=== PATIENT | female | born 1930 | race Caucasian/White ===

== ENCOUNTER 2017-11-15 00:42 | Inpatient (IN) | payer MEDICARE, OTHER ==
[~2017-11-15] VITALS: Ht 160 cm; Wt 122.9 kg
[2017-11-15] MEDS ORDERED: LOPERAMIDE HCL (2 MG CAP) 2 MG CAPSULE PO ONE ×2 (02:30→02:31)
[2017-11-15 03:11] LABS: BASOPHILS # (AUTO) 0.6 /CMM (0.0-0.2); BASOPHILS % (AUTO) 1.5 % (0.0-2.0); EOSINOPHILS % (AUTO) 0.1 % (0.0-6.0); HEMATOCRIT 44 % (33-45); HEMOGLOBIN 15.2 g/dL (11.5-14.8); LYMPHOCYTES # (AUTO) 1.3 /CMM (0.8-4.8); LYMPHOCYTES % (AUTO) 3.5 % (20.0-44.0); MEAN CORPUSCULAR HEMOGLOBIN 30 PG (26.0-33.0); MEAN CORPUSCULAR HGB CONC 35 g/dl (31.0-36.0); MEAN CORPUSCULAR VOLUME 86 fL (82-100); MONOCYTES # (AUTO) 1.2 /CMM (0.1-1.30); MONOCYTES % (AUTO) 3.2 % (2.0-12.0); NEUTROPHILS # (AUTO) 35.3 /CMM (1.8-8.9); NEUTROPHILS % (AUTO) 91.7 % (43.0-81.0); PLATELET COUNT (AUTO) 314 /CMM (150-450); RDW COEFFICIENT OF VARIATION 13.2 (11.5-15.0); RED BLOOD CELL COUNT(AUTO) 5.05 MIL/uL (4.0-5.2)
[2017-11-15 03:18] LABS: WHITE BLOOD COUNT (AUTO) 38.4 K/uL (4.3-11.0)
[2017-11-15 03:21] LABS: CALCIUM, SERUM 7.6 mg/dL (8.5-10.1); CARBON DIOXIDE 18 mmol/L (21-32); CHLORIDE 91 mmol/L (98-107); CREATININE 1.9 mg/dL (0.6-1.3); GLUCOSE 126 mg/dL (74-106); SODIUM SERUM 125 mmol/L (136-145); UREA NITROGEN, BLOOD 58 mg/dL (7-18)
[2017-11-15 03:27] LABS: ALANINE AMINOTRANSFERASE 19 U/L (12-78); ALKALINE PHOSPHATASE 92 U/L (46-116); ASPARTATE AMINOTRANSFERASE 27 U/L (15-37); BILIRUBIN,DIRECT 0.4 mg/dL (0.0-0.2); BILIRUBIN,TOTAL 1.5 mg/dL (0.2-1.0); TOTAL PROTEIN, SERUM 7.6 g/dL (6.4-8.2)
[2017-11-15] MEDS ORDERED: PIPERACILLIN /TAZOBACTAM 2.25 G in IV D5W 50 ML IV ONE (03:30)
[2017-11-15] MEDS ORDERED: VANCOMYCIN 1 GM in IV D5W 250 ML IV ONE (03:30)
[2017-11-15] MEDS ORDERED: PIPERACILLIN /TAZOBACTAM 2.25 G VIAL IV ONE (04:12)
[2017-11-15] MEDS ORDERED: VANCOMYCIN 1 GM VIAL ONE (04:25)
[2017-11-15 04:27] LABS: BASOPHILS # (AUTO) 1.3 /CMM (0.0-0.2); BASOPHILS % (AUTO) 3.2 % (0.0-2.0); CALCIUM, SERUM 7.5 mg/dL (8.5-10.1); CARBON DIOXIDE 21 mmol/L (21-32); CHLORIDE 92 mmol/L (98-107); GLUCOSE 119 mg/dL (74-106); HEMATOCRIT 43 % (33-45); HEMOGLOBIN 14.7 g/dL (11.5-14.8); LYMPHOCYTES # (AUTO) 1.4 /CMM (0.8-4.8); LYMPHOCYTES % (AUTO) 3.5 % (20.0-44.0); MEAN CORPUSCULAR HEMOGLOBIN 29 PG (26.0-33.0); MEAN CORPUSCULAR HGB CONC 34 g/dl (31.0-36.0); MEAN CORPUSCULAR VOLUME 86 fL (82-100); MONOCYTES # (AUTO) 1.3 /CMM (0.1-1.30); MONOCYTES % (AUTO) 3.4 % (2.0-12.0); NEUTROPHILS # (AUTO) 35.5 /CMM (1.8-8.9); NEUTROPHILS % (AUTO) 89.9 % (43.0-81.0); PLATELET COUNT (AUTO) 313 /CMM (150-450); POTASSIUM 4.3 mmol/L (3.5-5.1); RDW COEFFICIENT OF VARIATION 13.4 (11.5-15.0); SODIUM SERUM 130 mmol/L (136-145); UREA NITROGEN, BLOOD 58 mg/dL (7-18)
[2017-11-15 04:31] LABS: INR 1.1 (0.87-1.13)
[2017-11-15 04:32] LABS: WHITE BLOOD COUNT (AUTO) 39.5 K/uL (4.3-11.0)
[2017-11-15 04:36] LABS: BAND % (MANUAL) 5 % (0.0-5.0); LYMPHOCYTES % (MANUAL) 6 % (16-48); MONOCYTES % (MANUAL) 2 % (0-11.0); NEUTROPHILS % (MANUAL) 87 (42-76)
[2017-11-15 04:44] LABS: ALANINE AMINOTRANSFERASE 17 U/L (12-78); ALBUMIN 3.1 g/dL (3.4-5.0); ALKALINE PHOSPHATASE 84 U/L (46-116); ASPARTATE AMINOTRANSFERASE 18 U/L (15-37); BILIRUBIN,TOTAL 1.4 mg/dL (0.2-1.0); TOTAL PROTEIN, SERUM 7.3 g/dL (6.4-8.2)
[2017-11-15 04:48] LABS: TROPONIN I 0.063 ng/mL (0.00-0.056)
[2017-11-15 05:02] LABS: APPEARANCE,URINE SL CLOUDY (CLEAR); BILIRUBIN,URINE 2+ (NEGATIVE); BLOOD, URINE NEGATIVE Ery/uL (NEGATIVE); COLOR,URINE AMBER (YELLOW); KETONES,URINE TRACE (NEGATIVE); LEUKOCYTE ESTERASE ,URINE NEGATIVE (NEGATIVE); NITRITE, URINE POSITIVE (NEGATIVE); PROTEIN,URINE TRACE mg/dl (NEGATIVE); UGLUCOSE NEGATIVE (NEGATIVE)
[2017-11-15 05:10] LABS: BACTERIA,URINE Few /HPF (None Seen); RBC,URINE 0-2 /HPF (0-2); SQUAMOUS EPITHELIAL CELL,UR Few /HPF (None Seen)
[2017-11-15 05:11] LABS: HYALINE CASTS, URINE Few /LPF (None Seen)
[2017-11-15 05:44] LABS: OCCULT BLOOD STOOL NEGATIVE (NEGATIVE)
[2017-11-15 06:00] VITALS: BP 96/44
[2017-11-15] MEDS ORDERED: Z GUARD REMEDY 2 OZ OINT TP PRN (06:00)
[2017-11-15] MEDS ORDERED: IV NS 0.9% 500 ML BAG IV ONE (06:00)
[2017-11-15] MEDS ORDERED: ONDANSETRON HCL/PF 4 MG/2 ML VIAL IVP PRN (06:00)
[2017-11-15] MEDS ORDERED: ASPIRIN 81 MG TAB.CHEW PO SCH ×4 (06:00→09:00)
[2017-11-15] MEDS ORDERED: MAGNESIUM HYDROXIDE 30 ML UDC PO PRN (06:00)
[2017-11-15] MEDS ORDERED: HYDROCODONE/APAP 5/325MG 1 EACH TABLET PO PRN (06:00)
[2017-11-15] MEDS ORDERED: ZOLPIDEM TARTRATE 5 MG TABLET PO PRN (06:00)
[2017-11-15 06:10] VITALS: BP 96/44
[2017-11-15] MEDS: IV NS 0.9% 1,000 ML IV PRN (07:03)
[2017-11-15] MEDS ORDERED: FEE PK DOSING 1 MIN EA MC ONE (07:22)
[2017-11-15 08:00] VITALS: BP 122/59
[2017-11-15] MEDS: METRONIDAZOLE 500MG/ NS 100ML 500 MG in PREMIX 1 EA IV SCH ×2 (08:11→14:33)
[2017-11-15] MEDS ORDERED: CLON0.3P TD (10:43)
[2017-11-15] MEDS ORDERED: ZOLP5TAB8 PO (10:43)
[2017-11-15] MEDS ORDERED: CLON0.2T PO (10:43)
[2017-11-15] MEDS ORDERED: MONT10TA22 PO (10:43)
[2017-11-15] MEDS ORDERED: CARV12.52 PO (10:43)
[2017-11-15] MEDS ORDERED: ERGO500014 PO (10:43)
[2017-11-15] MEDS ORDERED: VALS1TAB4 PO (10:43)
[2017-11-15] MEDS ORDERED: METF500T4 PO (10:43)
[2017-11-15] MEDS ORDERED: POTA10TA15 PO (10:43)
[2017-11-15] MEDS ORDERED: FURO40TA5 PO (10:43)
[2017-11-15] MEDS ORDERED: ESCI10TA PO (10:43)
[2017-11-15] MEDS ORDERED: ALPR0.5T8 PO (10:43)
[2017-11-15] MEDS ORDERED: BENZ0.5T3 PO (10:43)
[2017-11-15] MEDS ORDERED: ARIP2TAB11 PO (10:43)
[2017-11-15] MEDS ORDERED: NAPR-1009 PO (10:43)
[2017-11-15] MEDS ORDERED: LEVO112T2 PO (10:43)
[2017-11-15] MEDS ORDERED: ROSU10TA27 PO (10:43)
[2017-11-15] MEDS ORDERED: OMEP20CA10 PO (10:43)
[2017-11-15] MEDS ORDERED: ALLO100T PO (10:43)
[2017-11-15] MEDS ORDERED: ANAS1TAB8 PO (10:43)
[2017-11-15] MEDS ORDERED: AMLO5TAB2 PO (10:43)
[2017-11-15] MEDS ORDERED: INSU100V11 SQ (10:56)
[2017-11-15] MEDS ORDERED: BRIM5DRO2 EACHEYE (10:57)
[2017-11-15] MEDS: PIPERACILLIN /TAZOBACTAM 2.25 G in IV D5W 50 ML IV SCH ×3 (11:20→23:18)
[2017-11-15 12:00] VITALS: BP 115/63
[2017-11-15 16:00] VITALS: BP 103/46
[2017-11-15] MEDS: VANCOMYCIN 1 GM in IV D5W 250 ML IV SCH (16:02)
[2017-11-15] MEDS ORDERED: DEXTROSE 50%-WATER 50 ML DISP.SYRIN IV PRN (18:00)
[2017-11-15 20:00] VITALS: BP 103/46
[2017-11-15] MEDS: BLOOD SUGAR DIAGNOSTIC 1 EACH STRIP IN SCH (22:26)
[2017-11-15] MEDS: INSULIN REGULAR, HUMAN 100 UNIT/ML 3 ML VIAL SQ PRN (22:31)
[2017-11-16] VITALS: BP 138/67
[2017-11-16] MEDS: IV NS 0.9% 1,000 ML IV PRN ×2 (02:38→17:35)
[2017-11-16 04:00] VITALS: BP 145/74
[2017-11-16] MEDS: PIPERACILLIN /TAZOBACTAM 2.25 G in IV D5W 50 ML IV SCH ×3 (05:03→17:10)
[2017-11-16 08:00] VITALS: BP 145/74
[2017-11-16] MEDS: BLOOD SUGAR DIAGNOSTIC 1 EACH STRIP IN SCH ×4 (08:06→21:45)
[2017-11-16 08:08] LABS: BASOPHILS % (AUTO) 0.2 % (0.0-2.0); HEMATOCRIT 38 % (33-45); HEMOGLOBIN 12.7 g/dL (11.5-14.8); LYMPHOCYTES # (AUTO) 0.6 /CMM (0.8-4.8); LYMPHOCYTES % (AUTO) 3.1 % (20.0-44.0); MEAN CORPUSCULAR HEMOGLOBIN 29 PG (26.0-33.0); MEAN CORPUSCULAR HGB CONC 34 g/dl (31.0-36.0); MEAN CORPUSCULAR VOLUME 87 fL (82-100); MONOCYTES # (AUTO) 0.7 /CMM (0.1-1.30); MONOCYTES % (AUTO) 3.6 % (2.0-12.0); NEUTROPHILS # (AUTO) 18.3 /CMM (1.8-8.9); NEUTROPHILS % (AUTO) 93.1 % (43.0-81.0); PLATELET COUNT (AUTO) 243 /CMM (150-450); RDW COEFFICIENT OF VARIATION 14.2 (11.5-15.0); RED BLOOD CELL COUNT(AUTO) 4.36 MIL/uL (4.0-5.2); WHITE BLOOD COUNT (AUTO) 19.6 K/uL (4.3-11.0)
[2017-11-16 08:25] LABS: CALCIUM, SERUM 6.7 mg/dL (8.5-10.1); CARBON DIOXIDE 19 mmol/L (21-32); CHLORIDE 97 mmol/L (98-107); CREATININE 1.8 mg/dL (0.6-1.3); GLUCOSE 120 mg/dL (74-106); MAGNESIUM 2.6 mg/dL (1.8-2.4); PHOSPHORUS 4.5 mg/dL (2.5-4.9); POTASSIUM 3.4 mmol/L (3.5-5.1); SODIUM SERUM 131 mmol/L (136-145); UREA NITROGEN, BLOOD 61 mg/dL (7-18)
[2017-11-16 09:21] LABS: CHOLESTEROL 97 mg/dL (<200); HDL CHOLESTEROL 20 mg/dL (40-60); LDL 61 mg/dL (0-99); TRIGLYCERIDES 116 mg/dL (30-150)
[2017-11-16 09:23] LABS: BAND % (MANUAL) 3 % (0.0-5.0); LYMPHOCYTES % (MANUAL) 4 % (16-48); MONOCYTES % (MANUAL) 3 % (0-11.0); NEUTROPHILS % (MANUAL) 90 (42-76)
[2017-11-16] MEDS ORDERED: POTASSIUM CHLORIDE 20 MEQ TAB.PRT.SR PO ONE (10:00)
[2017-11-16] MEDS: INSULIN REGULAR, HUMAN 100 UNIT/ML 3 ML VIAL SQ PRN ×2 (11:55→17:33)
[2017-11-16] MEDS: MAG HYDROX/AL HYDROX/SIMETH 30 ML UDC PO PRN (11:59)
[2017-11-16 12:00] VITALS: BP 124/52
[2017-11-16] MEDS ORDERED: ERGOCALCIFEROL (VITAMIN D 2) 50,000 UNIT CAPSULE PO SCH (15:00)
[2017-11-16] MEDS ORDERED: CLONIDINE HCL 0.2 MG TABLET PO PRN (15:00)
[2017-11-16 16:00] VITALS: BP 114/55
[2017-11-16] MEDS: BENZTROPINE MESYLATE (1 MG) 1 MG TABLET PO SCH ×2 (16:03→16:26)
[2017-11-16] MEDS: ALPRAZOLAM 0.5 MG TABLET PO PRN (16:24)
[2017-11-16] MEDS: ACETAMINOPHEN 325 MG TABLET PO PRN (16:37)
[2017-11-16] MEDS: CARVEDILOL 12.5 MG TABLET PO SCH (16:39)
[2017-11-16] MEDS: MONTELUKAST SODIUM (10MG) 10 MG TABLET PO SCH (17:10)
[2017-11-16 20:38] VITALS: BP 121/47
[2017-11-17] VITALS (7 sets, daily range): BP systolic 104–132; BP diastolic 33–63
[2017-11-17] MEDS: PIPERACILLIN /TAZOBACTAM 2.25 G in IV D5W 50 ML IV SCH ×4 (00:48→17:00)
[2017-11-17] MEDS: VANCOMYCIN 1 GM in IV D5W 250 ML IV SCH (04:14)
[2017-11-17] MEDS: ALPRAZOLAM 0.5 MG TABLET PO PRN (04:16)
[2017-11-17] MEDS: MAG HYDROX/AL HYDROX/SIMETH 30 ML UDC PO PRN (04:16)
[2017-11-17 06:42] LABS: BASOPHILS % (AUTO) 0.2 % (0.0-2.0); EOSINOPHILS % (AUTO) 0.2 % (0.0-6.0); HEMATOCRIT 35 % (33-45); HEMOGLOBIN 11.7 g/dL (11.5-14.8); LYMPHOCYTES # (AUTO) 0.9 /CMM (0.8-4.8); LYMPHOCYTES % (AUTO) 6.7 % (20.0-44.0); MEAN CORPUSCULAR HEMOGLOBIN 29 PG (26.0-33.0); MEAN CORPUSCULAR HGB CONC 33 g/dl (31.0-36.0); MEAN CORPUSCULAR VOLUME 88 fL (82-100); MONOCYTES # (AUTO) 0.9 /CMM (0.1-1.30); MONOCYTES % (AUTO) 6.8 % (2.0-12.0); NEUTROPHILS # (AUTO) 11.4 /CMM (1.8-8.9); NEUTROPHILS % (AUTO) 86.1 % (43.0-81.0); PLATELET COUNT (AUTO) 219 /CMM (150-450); RDW COEFFICIENT OF VARIATION 14.7 (11.5-15.0); RED BLOOD CELL COUNT(AUTO) 4.02 MIL/uL (4.0-5.2); WHITE BLOOD COUNT (AUTO) 13.2 K/uL (4.3-11.0)
[2017-11-17 06:57] LABS: CALCIUM, SERUM 6.8 mg/dL (8.5-10.1); CARBON DIOXIDE 22 mmol/L (21-32); CHLORIDE 100 mmol/L (98-107); CREATININE 1.5 mg/dL (0.6-1.3); GLUCOSE 153 mg/dL (74-106); MAGNESIUM 2.9 mg/dL (1.8-2.4); PHOSPHORUS 3.9 mg/dL (2.5-4.9); POTASSIUM 3.8 mmol/L (3.5-5.1); SODIUM SERUM 133 mmol/L (136-145); UREA NITROGEN, BLOOD 54 mg/dL (7-18)
[2017-11-17] MEDS: BLOOD SUGAR DIAGNOSTIC 1 EACH STRIP IN SCH ×4 (07:42→21:53)
[2017-11-17] MEDS: ESCITALOPRAM OXALATE (10 MG) 10 MG TABLET PO SCH (08:21)
[2017-11-17] MEDS: BENZTROPINE MESYLATE (1 MG) 1 MG TABLET PO SCH ×2 (08:21→16:21)
[2017-11-17] MEDS: ARIPIPRAZOLE 2 MG TABLET PO SCH (08:21)
[2017-11-17] MEDS: ANASTROZOLE 1 MG TABLET PO SCH (08:21)
[2017-11-17] MEDS: LEVOTHYROXINE SODIUM 112 MCG TABLET PO SCH (08:21)
[2017-11-17] MEDS: CARVEDILOL 12.5 MG TABLET PO SCH ×2 (08:22→16:21)
[2017-11-17] MEDS: AMLODIPINE BESYLATE 5 MG TABLET PO SCH (08:22)
[2017-11-17] MEDS: BRIMONIDINE TARTRATE OPHT SOLN 5 ML BOTTLE OP SCH (08:23)
[2017-11-17] MEDS: TIMOLOL 0.5% SOLN OPHTH 5 ML BOTTLE OP SCH (08:23)
[2017-11-17] MEDS: IV NS 0.9% 1,000 ML IV PRN (12:10)
[2017-11-17] MEDS: MONTELUKAST SODIUM (10MG) 10 MG TABLET PO SCH (17:00)
[2017-11-17] MEDS: INSULIN REGULAR, HUMAN 100 UNIT/ML 3 ML VIAL SQ PRN (17:06)
[2017-11-17] MEDS: ATORVASTATIN 10 MG TABLET PO SCH (21:54)
[2017-11-18] VITALS (7 sets, daily range): BP systolic 118–141; BP diastolic 49–66
[2017-11-18] MEDS: PIPERACILLIN /TAZOBACTAM 2.25 G in IV D5W 50 ML IV SCH ×2 (01:29→06:55)
[2017-11-18] MEDS: ACETAMINOPHEN 325 MG TABLET PO PRN ×2 (02:26→09:24)
[2017-11-18] MEDS: IV NS 0.9% 1,000 ML IV PRN (03:39)
[2017-11-18 06:38] LABS: BASOPHILS % (AUTO) 0.2 % (0.0-2.0); EOSINOPHILS # (AUTO) 0.2 /CMM (0.0-0.7); EOSINOPHILS % (AUTO) 2.1 % (0.0-6.0); HEMATOCRIT 37 % (33-45); HEMOGLOBIN 12.3 g/dL (11.5-14.8); LYMPHOCYTES # (AUTO) 0.9 /CMM (0.8-4.8); MEAN CORPUSCULAR HEMOGLOBIN 30 PG (26.0-33.0); MEAN CORPUSCULAR HGB CONC 34 g/dl (31.0-36.0); MEAN CORPUSCULAR VOLUME 88 fL (82-100); MONOCYTES # (AUTO) 0.9 /CMM (0.1-1.30); NEUTROPHILS % (AUTO) 77.7 % (43.0-81.0); PLATELET COUNT (AUTO) 282 /CMM (150-450); RDW COEFFICIENT OF VARIATION 14.4 (11.5-15.0); RED BLOOD CELL COUNT(AUTO) 4.16 MIL/uL (4.0-5.2)
[2017-11-18 07:01] LABS: CALCIUM, SERUM 7.9 mg/dL (8.5-10.1); CARBON DIOXIDE 28 mmol/L (21-32); CHLORIDE 103 mmol/L (98-107); CREATININE 1.1 mg/dL (0.6-1.3); GLUCOSE 130 mg/dL (74-106); POTASSIUM 3.6 mmol/L (3.5-5.1); SODIUM SERUM 137 mmol/L (136-145); UREA NITROGEN, BLOOD 37 mg/dL (7-18)
[2017-11-18] MEDS: ANASTROZOLE 1 MG TABLET PO SCH (09:21)
[2017-11-18] MEDS: BLOOD SUGAR DIAGNOSTIC 1 EACH STRIP IN SCH ×4 (09:21→21:27)
[2017-11-18] MEDS: LEVOFLOXACIN (250MG) 250 MG TABLET PO SCH (09:21)
[2017-11-18] MEDS: ESCITALOPRAM OXALATE (10 MG) 10 MG TABLET PO SCH (09:21)
[2017-11-18] MEDS: NEOMY SULF/BACITRAC ZN/POLY 15 GM TUBE TP SCH (09:22)
[2017-11-18] MEDS: BENZTROPINE MESYLATE (1 MG) 1 MG TABLET PO SCH ×3 (09:22→17:00)
[2017-11-18] MEDS: LEVOTHYROXINE SODIUM 112 MCG TABLET PO SCH (09:22)
[2017-11-18] MEDS: AMLODIPINE BESYLATE 5 MG TABLET PO SCH (09:22)
[2017-11-18] MEDS: CARVEDILOL 12.5 MG TABLET PO SCH ×2 (09:22→16:55)
[2017-11-18] MEDS: TIMOLOL 0.5% SOLN OPHTH 5 ML BOTTLE OP SCH (09:24)
[2017-11-18] MEDS: BRIMONIDINE TARTRATE OPHT SOLN 5 ML BOTTLE OP SCH (09:24)
[2017-11-18] MEDS: ARIPIPRAZOLE 2 MG TABLET PO SCH (09:24)
[2017-11-18] MEDS: MONTELUKAST SODIUM (10MG) 10 MG TABLET PO SCH (16:56)
[2017-11-18] MEDS: ATORVASTATIN 10 MG TABLET PO SCH (21:28)
[2017-11-19 06:41] LABS: CALCIUM, SERUM 8.5 mg/dL (8.5-10.1); CARBON DIOXIDE 23 mmol/L (21-32); CHLORIDE 104 mmol/L (98-107); CREATININE 0.9 mg/dL (0.6-1.3); GLUCOSE 117 mg/dL (74-106); POTASSIUM 3.5 mmol/L (3.5-5.1); SODIUM SERUM 140 mmol/L (136-145); UREA NITROGEN, BLOOD 31 mg/dL (7-18)
[2017-11-19] MEDS: BLOOD SUGAR DIAGNOSTIC 1 EACH STRIP IN SCH ×3 (06:42→17:38)
[2017-11-19 08:00] VITALS: BP 150/62
[2017-11-19] MEDS: ACETAMINOPHEN 325 MG TABLET PO PRN (08:37)
[2017-11-19] MEDS: BENZTROPINE MESYLATE (1 MG) 1 MG TABLET PO SCH (08:38)
[2017-11-19] MEDS: LEVOFLOXACIN (250MG) 250 MG TABLET PO SCH (08:38)
[2017-11-19] MEDS: LEVOTHYROXINE SODIUM 112 MCG TABLET PO SCH (08:38)
[2017-11-19] MEDS: AMLODIPINE BESYLATE 5 MG TABLET PO SCH (08:38)
[2017-11-19] MEDS: CARVEDILOL 12.5 MG TABLET PO SCH (08:38)
[2017-11-19] MEDS: ANASTROZOLE 1 MG TABLET PO SCH (08:38)
[2017-11-19] MEDS: ESCITALOPRAM OXALATE (10 MG) 10 MG TABLET PO SCH (08:39)
[2017-11-19] MEDS: ARIPIPRAZOLE 2 MG TABLET PO SCH (08:39)
[2017-11-19] MEDS: TIMOLOL 0.5% SOLN OPHTH 5 ML BOTTLE OP SCH (08:44)
[2017-11-19] MEDS: BRIMONIDINE TARTRATE OPHT SOLN 5 ML BOTTLE OP SCH (08:45)
[2017-11-19] MEDS: NEOMY SULF/BACITRAC ZN/POLY 15 GM TUBE TP SCH (08:45)
[2017-11-19] MEDS ORDERED: CLONIDINE HCL 0.3 MG/24H PTWK 1 EA PATCH TD SCH (09:00)
[2017-11-19] MEDS: IV NS 0.9% 1,000 ML IV PRN (14:26)
[2017-11-19] MEDS ORDERED: NEOM15OI3 TP (15:20)
[2017-11-19] MEDS ORDERED: LEVO250T2 PO (15:20)
[2017-11-19 16:00] VITALS: BP 134/55
== END 2017-11-19 18:00 | disposition home health service (06) | DRG 871 ==
LOC: ER 00:43 → TELE1 05:46 → TELE-TD 06:05 → MEDSG1 11-18 12:55 → MEDSG2 11-18 20:57
PROVIDERS: ADMIT Internal Medicine; ATTEND Nurse Practitioner Acute Care
DX: A41.9 Sepsis, unspecified organism (principal); I21.4 Non-ST elevation (NSTEMI) myocardial infarction; N17.0 Acute kidney failure with tubular necrosis; E44.1 Mild protein-calorie malnutrition; N39.0 Urinary tract infection, site not specified; E87.1 Hypo-osmolality and hyponatremia; A04.72 Enterocolitis due to Clostridium difficile, not specified as recurrent; Z68.42 Body mass index [BMI] 45.0-49.9, adult; I12.9 Hypertensive chronic kidney disease with stage 1 through stage 4 chronic kidney disease, or unspecified chronic kidney disease; N18.9 Chronic kidney disease, unspecified; E11.22 Type 2 diabetes mellitus with diabetic chronic kidney disease; E78.5 Hyperlipidemia, unspecified; Z79.82 Long term (current) use of aspirin; K43.9 Ventral hernia without obstruction or gangrene; I70.0 Atherosclerosis of aorta; I25.10 Atherosclerotic heart disease of native coronary artery without angina pectoris; H40.9 Unspecified glaucoma; E86.1 Hypovolemia; E86.0 Dehydration; Z90.13 Acquired absence of bilateral breasts and nipples; Z85.3 Personal history of malignant neoplasm of breast; Z85.038 Personal history of other malignant neoplasm of large intestine; K59.00 Constipation, unspecified; T46.3X5A Adverse effect of coronary vasodilators, initial encounter; Y92.009 Unspecified place in unspecified non-institutional (private) residence as the place of occurrence of the external cause; R23.4 Changes in skin texture; E66.01 Morbid (severe) obesity due to excess calories
CPT/HCPCS: 36415; 71045-TC; 80048-TC; 80053-TC; 80061-TC; 80076-TC; 81000-TC; 82272-TC; 82962-TC; 83605-TC; 83735-TC; 84100-TC; 84484-TC; 85025-TC; 85730-TC; 87040-TC; 87045-TC; 87081-TC; 87086-TC; 89055; 97116-TC; 97530-TC; A4216; A4606; J1815; J2405; J2543; J3370; J3490; J7030; J7060; Z7610